=== PATIENT | female | born 1990 | race Caucasian/White ===

== ENCOUNTER 2025-02-17 15:17 | Inpatient (IN) | payer OTHER ==
[2025-02-17 17:01] LABS: MCHC 23.8 g/dl (32.2-35.5); MEAN CELL VOLUME 65.8 fl (79.4-94.8); MEAN PLT VOLUME 9.3 fl (9.4-12.3); RDW 23.5 % (12.1-16.8)
[2025-02-17 17:14] LABS: GLUCOSE,RANDOM 368.0 mg/dL (74-106); TOT PROT 7.5 g/dl (6.4-8.2)
[2025-02-17 17:15] LABS: CO2 28.0 mmol/L (21-32); INR 0.87 (0.83-1.09); PROTHROMBIN TIME (PATIENT) 9.6 SEC (9.7-13.0)
[2025-02-17 17:17] LABS: ACTIVATED PTT 25.6 SECONDS (25.2-36.5); ALK PHOS 170.0 U/L (40-150)
[2025-02-17 17:20] LABS: CREATININE 0.49 mg/dL (0.55-1.3); SGOT/AST 18.0 U/L (5-34); SGPT/ALT 26.0 U/L (0-55)
[2025-02-17 17:53] LABS: BG HCT 19.0 % (32.4-45.2); VENOUS BASE EXCESS 2.0 mmol/L (-2-2); VENOUS O2 SATURATION 76.6 % (70-80); VENOUS PCO2 43.9 mmHg (38-52); VENOUS PH 7.405 (7.310-7.410)
[2025-02-17] MEDS ORDERED: PANTOPRAZOLE SODIUM 40 MG VIAL ONE (18:32)
[2025-02-17] MEDS: SODIUM CHLORIDE 0.9% 500 ML INFUS.BAG IV ONE (18:47)
[2025-02-17] MEDS: PANTOPRAZOLE SODIUM 40 MG VIAL IVPUSH ONE (18:48)
[2025-02-17 19:22] LABS: IRON SERUM 13.0 ug/dL (50-175)
[2025-02-17] MEDS ORDERED: INSULIN GLARGINE (LANTUS) 100 UNITS/ML UNITS SQ ONE (22:43)
[2025-02-17] MEDS: INSULIN GLARGINE (LANTUS) 100 UNITS/ML UNITS SQ SCH (22:53)
[2025-02-18] MEDS: QUEtiapine FUMARATE 100 MG TABLET (FP) PO SCH (01:32)
[2025-02-18] MEDS: GABAPENTIN 400 MG CAPSULE PO SCH (01:32)
[2025-02-18] MEDS: PANTOPRAZOLE SODIUM 40 MG VIAL IVPUSH SCH ×2 (01:32→22:07)
[2025-02-18] MEDS: POLYETHYLENE GLYCOL (HEALTHYLAX) 3350 17 GM PACKET PO SCH (01:33)
[2025-02-18] MEDS: THIAMINE 100 MG TABLET PO ONE (04:49)
[2025-02-18] MEDS: MINERAL OIL ENEMA 133 ML ENEMA RC ONE (05:32)
[2025-02-18] MEDS: SODIUM CHLORIDE 1,000 ML IV SCH (05:53)
[2025-02-18] MEDS: INSULIN ASPART SLIDING SCALE (NOVOLOG) 1 VIAL SQ SCH (05:59)
[2025-02-18] MEDS: DEXTROSE 50%-WATER 25 GM/50 ML DISP.SYRIN IVPUSH ONE ×2 (07:01→10:30)
[2025-02-18] MEDS: DEXTROSE 5%-NORMAL SALINE 1,000 ML IV SCH ×2 (09:03→12:59)
[2025-02-18 09:12] LABS: ABSOLUTE IMMATURE GRANULOCYTES 0.03 x10^3/uL (0.0-0.031); BASOPHILS # 0.05 x10^3/uL (0.01-0.08); EOSINOPHIL % 2.3 % (0.7-5.8); EOSINOPHILS # 0.16 x10^3/uL (0.04-0.36); MCHC 27.1 g/dl (32.2-35.5); MEAN CELL VOLUME 70.8 fl (79.4-94.8); MEAN PLT VOLUME 8.8 fl (9.4-12.3); MONOCYTE # 0.78 x10^3/uL (0.24-0.86); MONOCYTE % 11.1 % (4.7-12.5); RDW 28.7 % (12.1-16.8)
[2025-02-18 09:53] LABS: GLUCOSE,RANDOM 43 mg/dL (74-106)
[2025-02-18 09:54] LABS: TOT PROT 7.4 g/dl (6.4-8.2)
[2025-02-18 09:55] LABS: CO2 26 mmol/L (21-32)
[2025-02-18 09:59] LABS: CREATININE 0.51 mg/dL (0.55-1.3); SGOT/AST 21 U/L (5-34); SGPT/ALT 21 U/L (0-55)
[2025-02-18] MEDS ORDERED: DEXTROSE 50%-WATER - 25 GM/50 ML VIAL IVPUSH ONE (10:12)
[2025-02-18] MEDS ORDERED: DEXTROSE 5%-NORMAL SALINE 1,000 ML IV SCH (10:12)
[2025-02-18] MEDS ORDERED: DEXTROSE 50%-WATER 25 GM/50 ML DISP.SYRIN ONE (10:23)
[2025-02-18] MEDS: FOLIC ACID 1 MG TABLET (FP) PO SCH (10:30)
[2025-02-18] MEDS: FLUTICASONE/SALMETEROL (WIXELA) 100 MCG/50 MCG DISKUS IH SCH (10:31)
[2025-02-18 10:33] LABS: ALK PHOS 155 U/L (40-150)
[2025-02-18] MEDS: IRON SUCROSE INJECTION 200 MG in SODIUM CHLORIDE 100 ML IVPB ONE (12:58)
[2025-02-18 15:27] LABS: MCHC 26.8 g/dl (32.2-35.5); MEAN CELL VOLUME 71.7 fl (79.4-94.8); MEAN PLT VOLUME 8.8 fl (9.4-12.3); RDW 28.3 % (12.1-16.8)
[2025-02-18 16:43] LABS: HIV INTERPRETATION NEGATIVE (NEGATIVE)
[2025-02-18] MEDS: PEG 3350/NA SULF BICARB CL/KCL 4000 ML SOLN.RECON PO ONE (17:38)
[2025-02-18] MEDS: BISACODYL 5 MG TABLET.DR (FP) PO ONE (18:15)
[2025-02-18 18:59] LABS: HCV DIAGNOSTIC IN-HOUSE W/RFLX NON-REACTIVE (NONREACTIVE)
[2025-02-18] MEDS: INSULIN GLARGINE (LANTUS) 100 UNITS/ML UNITS SQ SCH (22:30)
[2025-02-19] MEDS: MINERAL OIL ENEMA 133 ML ENEMA RC ONE (07:10)
[2025-02-19] MEDS: THIAMINE 100 MG TABLET PO ONE (07:11)
[2025-02-19 08:48] LABS: MCHC 26.8 g/dl (32.2-35.5); MEAN CELL VOLUME 72.4 fl (79.4-94.8); MEAN PLT VOLUME 9.0 fl (9.4-12.3); RDW 29.4 % (12.1-16.8)
[2025-02-19 09:12] LABS: INR 0.99 (0.83-1.09); PROTHROMBIN TIME (PATIENT) 10.9 SEC (9.7-13.0)
[2025-02-19 09:42] LABS: GLUCOSE,RANDOM 207.0 mg/dL (74-106)
[2025-02-19 09:43] LABS: TOT PROT 7.3 g/dl (6.4-8.2)
[2025-02-19 09:44] LABS: CO2 25.0 mmol/L (21-32)
[2025-02-19 09:45] LABS: ALK PHOS 149.0 U/L (40-150)
[2025-02-19 09:48] LABS: CREATININE 0.51 mg/dL (0.55-1.3); SGOT/AST 29.0 U/L (5-34); SGPT/ALT 21.0 U/L (0-55)
[2025-02-19] MEDS ORDERED: PANTOPRAZOLE 40 MG TABLET PO SCH (10:00)
[2025-02-19 16:20] VITALS: BMI 18.0
[2025-02-19] MEDS ORDERED: PRAMOXINE HCL/CALAMINE 177 ML LOTION TP PRN (18:18)
[2025-02-19] MEDS ORDERED: CALMINE 3% & PRAMOXINE 1% (AVEENO ANTI-ITCH) BOTTLE TP PRN (19:57)
[2025-02-19] MEDS: ONDANSETRON 4 MG/2 ML VIAL IVPUSH ONE (20:55)
[2025-02-19 22:09] VITALS: RESP 19
[2025-02-20] MEDS: INSULIN GLARGINE (LANTUS) 100 UNITS/ML UNITS SQ ONE (02:20)
[2025-02-20] MEDS: SODIUM CHLORIDE 1,000 ML IV SCH (08:00)
[2025-02-20] MEDS: INSULIN (NOVOLOG) ASPART 100 UNITS/ML 10ML VIAL SQ SCH (08:15)
[2025-02-20 08:30] LABS: MCHC 27.0 g/dl (32.2-35.5); MEAN CELL VOLUME 72.0 fl (79.4-94.8); MEAN PLT VOLUME 9.9 fl (9.4-12.3); RDW 30.5 % (12.1-16.8)
[2025-02-20 16:05] VITALS: BP 124/74; PULSE 78; TEMP 98
[2025-02-20] MEDS ORDERED: INSULIN GLARGINE (LANTUS) 100 UNITS/ML UNITS SQ SCH (22:00)
== END 2025-02-20 15:45 | disposition other institution (70) | DRG 378 ==
LOC: JER 15:17 → OBSVTOIN 18:10 → JERBED 18:10 → J5S 23:40
PROVIDERS: ADMIT Internal Medicine; ATTEND Student in an Organized Health Care Education/Training Program
PROC: 30233N1 Transfusion of Nonautologous Red Blood Cells into Peripheral Vein, Percutaneous Approach (ICD-10-PCS; 2025-02-17)
PROC: 0DBB8ZX Excision of Ileum, Via Natural or Artificial Opening Endoscopic, Diagnostic (ICD-10-PCS; 2025-02-19)
PROC: 0DB68ZX Excision of Stomach, Via Natural or Artificial Opening Endoscopic, Diagnostic (ICD-10-PCS; 2025-02-19)
PROC: 0DBH8ZX Excision of Cecum, Via Natural or Artificial Opening Endoscopic, Diagnostic (ICD-10-PCS; principal; 2025-02-19 12:00)
DX: K92.2 Gastrointestinal hemorrhage, unspecified (principal); E46 Unspecified protein-calorie malnutrition; Z68.1 Body mass index [BMI] 19.9 or less, adult; D50.9 Iron deficiency anemia, unspecified; F90.9 Attention-deficit hyperactivity disorder, unspecified type; D47.3 Essential (hemorrhagic) thrombocythemia; E10.65 Type 1 diabetes mellitus with hyperglycemia; F11.10 Opioid abuse, uncomplicated; E10.42 Type 1 diabetes mellitus with diabetic polyneuropathy; F41.8 Other specified anxiety disorders; F43.10 Post-traumatic stress disorder, unspecified; K44.9 Diaphragmatic hernia without obstruction or gangrene; K29.60 Other gastritis without bleeding; K21.9 Gastro-esophageal reflux disease without esophagitis; Z12.11 Encounter for screening for malignant neoplasm of colon
CPT/HCPCS: 36415; 36430; 74177-TC; 80048; 80053; 80076; 82010; 82272; 82747; 82803; 82962; 82977; 83036; 83540; 83550; 83690; 84703; 85014; 85025; 85027; 85610; 85730; 86140; 86803; 86850; 86900; 86901; 86922; 87045; 87046; 87209; 87389; 88305-TC; 88342-TC; 93005; 93010; 99285-25; J1756; P9058; Q9967

== ENCOUNTER 2025-02-20 16:34 | Inpatient (IN) | payer OTHER ==
[2025-02-20 16:58] VITALS: BMI 18.4
[2025-02-20] MEDS ORDERED: guaiFENesin 600 MG TABLET.ER (FP) PO PRN (17:30)
[2025-02-20] MEDS ORDERED: BENZONATATE 200 MG CAPSULE PO PRN (17:30)
[2025-02-20] MEDS ORDERED: BENZOCAINE/MENTHOL (CHLORASEPTIC ) LOZENGE MM PRN (17:30)
[2025-02-20] MEDS ORDERED: NALOXONE HCL 0.4 MG/ML VIAL IVPUSH PRN (17:30)
[2025-02-20] MEDS ORDERED: LOPERAMIDE HCL 2 MG CAPSULE PO PRN (17:30)
[2025-02-20] MEDS ORDERED: NALOXONE (NARCAN) HCL 4 MG/0.1 ML SPRAY NS PRN (17:30)
[2025-02-20] MEDS: INSULIN ASPART SLIDING SCALE (NOVOLOG) 1 VIAL SQ SCH (22:06)
[2025-02-20] MEDS ORDERED: MELATONIN 5 MG TABLETS ONE (22:08)
[2025-02-20] MEDS: MELATONIN 5 MG TABLETS PO SCH (22:09)
[2025-02-20] MEDS: THIAMINE 100 MG TABLET PO SCH (22:10)
[2025-02-20] MEDS: hydrOXYzine PAMOATE 25 MG CAPSULE (FP) PO PRN (22:11)
[2025-02-20] MEDS ORDERED: hydrOXYzine PAMOATE 25 MG CAPSULE (FP) PO ONE (22:11)
[2025-02-20] MEDS ORDERED: INSULIN (NOVOLOG) ASPART 100 UNITS/ML 10ML VIAL SQ ONE (22:22)
[2025-02-20] MEDS: GABAPENTIN 400 MG CAPSULE PO SCH (22:45)
[2025-02-20] MEDS: DOCUSATE SODIUM 100 MG CAPSULE (FP) PO SCH (22:45)
[2025-02-20] MEDS: AMOX TR/POT CLAV 500MG/125MG TABLETS (FP) PO SCH (22:49)
[2025-02-20] MEDS: INSULIN GLARGINE (LANTUS) 100 UNITS/ML UNITS SQ SCH (22:51)
[2025-02-20] MEDS: SUCRALFATE 1 GM TABLET (FP) PO SCH (23:55)
[2025-02-21] MEDS: FERROUS SO4 325 MG TABLET (FP) PO SCH (08:50)
[2025-02-21] MEDS: PRENATAL VITAMINS W/ FOLIC ACID TABLET (FP) PO SCH (09:34)
[2025-02-21] MEDS: FAMOTIDINE 20 MG TABLET PO SCH (09:34)
[2025-02-21] MEDS: FLUTICASONE/SALMETEROL (WIXELA) 100 MCG/50 MCG DISKUS IH SCH (09:34)
[2025-02-21 11:58] LABS: MCHC 27.7 g/dl (32.2-35.5); MEAN CELL VOLUME 72.7 fl (79.4-94.8); MEAN PLT VOLUME 8.8 fl (9.4-12.3)
[2025-02-21] MEDS: METHOCARBAMOL 500 MG TABLET PO PRN (13:16)
[2025-02-21] MEDS: QUEtiapine FUMARATE 100 MG TABLET (FP) PO SCH (21:22)
[2025-02-22] MEDS: INSULIN ASPART SLIDING SCALE (NOVOLOG) 1 VIAL SQ SCH ×2 (12:16→22:09)
[2025-02-22] MEDS: POLYETHYLENE GLYCOL (HEALTHYLAX) 3350 17 GM PACKET PO PRN (19:40)
[2025-02-23] MEDS ORDERED: INSULIN (NOVOLOG) ASPART 100 UNITS/ML 10ML VIAL SQ ONE ×3 (12:16→16:34)
[2025-02-23] MEDS: MAGNESIUM HYDROX 2400MG/30ML ORAL SUSPENSION 30 ML CUP PO PRN (14:11)
[2025-02-24] MEDS ORDERED: INSULIN (NOVOLOG) ASPART 100 UNITS/ML 10ML VIAL SQ ONE ×2 (06:09→11:49)
[2025-02-24] MEDS: IBUPROFEN 400 MG TABLET (FP) PO PRN (11:40)
[2025-02-24] MEDS: INSULIN (NOVOLOG) ASPART 100 UNITS/ML 10ML VIAL SQ SCH (11:45)
[2025-02-24] MEDS: BUPRENORPHINE HCL 150 MCG, BUPRENORPHINE HCL 75 MCG BC ONE (13:01)
[2025-02-24] MEDS: INSULIN GLARGINE (LANTUS) 100 UNITS/ML UNITS SQ SCH (22:01)
[2025-02-25] MEDS ORDERED: INSULIN (NOVOLOG) ASPART 100 UNITS/ML 10ML VIAL SQ ONE ×2 (06:49→11:59)
[2025-02-25] MEDS: BUPRENORPHINE HCL 150 MCG, BUPRENORPHINE HCL 75 MCG BC SCH (06:51)
[2025-02-26] MEDS: BUPRENORPHINE HCL 450 MCG FILM BC SCH (06:14)
[2025-02-27] MEDS: BUPRENORPHINE/NALOXONE 4 MG/1 MG FILM PACKET SL SCH (06:01)
[2025-02-28] MEDS: INSULIN (NOVOLOG) ASPART 100 UNITS/ML 10ML VIAL SQ SCH (06:27)
[2025-02-28] MEDS: BUPRENORPHINE/NALOXONE 4 MG/1 MG FILM PACKET SL SCH (10:28)
[2025-03-01] MEDS ORDERED: INSULIN (NOVOLOG) ASPART 100 UNITS/ML 10ML VIAL SQ ONE (21:29)
[2025-03-01] MEDS ORDERED: INSULIN GLARGINE (LANTUS) 100 UNITS/ML UNITS SQ ONE (21:30)
[2025-03-01] MEDS: INSULIN GLARGINE (LANTUS) 100 UNITS/ML UNITS SQ SCH (22:23)
[2025-03-03] MEDS ORDERED: SILVER SULFADIAZINE 1% TOP CREAM 400 GM JAR TP SCH (16:15)
[2025-03-03] MEDS: SILVER SULFADIAZINE 1% TOP CREAM 50 GM JAR TP SCH (16:30)
[2025-03-03] MEDS: DOXYCYCLINE HYCLATE 100 MG TABLET PO SCH (17:08)
[2025-03-03] MEDS: SENNOSIDES 8.6MG TABLET (FP) PO SCH (21:06)
[2025-03-03] MEDS: LIDOCAINE PATCH REMOVAL MC SCH (21:11)
[2025-03-03] MEDS: INSULIN GLARGINE (LANTUS) 100 UNITS/ML UNITS SQ SCH (21:59)
[2025-03-04] MEDS: FERROUS SO4 325 MG TABLET (FP) PO SCH (07:03)
[2025-03-04] MEDS: SENNOSIDES 8.6MG TABLET (FP) PO SCH (09:46)
[2025-03-04] MEDS ORDERED: INSULIN (NOVOLOG) ASPART 100 UNITS/ML 10ML VIAL SQ ONE (12:12)
[2025-03-04] MEDS: LIDOCAINE 5% TOPICAL PATCH TP PRN (13:58)
[2025-03-04] MEDS: INSULIN GLARGINE (LANTUS) 100 UNITS/ML UNITS SQ SCH (22:02)
[2025-03-05] MEDS ORDERED: INSULIN (NOVOLOG) ASPART 100 UNITS/ML 10ML VIAL SQ ONE (07:21)
[2025-03-05] MEDS: GLYCERIN 1 RECTAL SUPPOSITORY, ADULT RC PRN (10:24)
[2025-03-05] MEDS: INSULIN GLARGINE (LANTUS) 100 UNITS/ML UNITS SQ SCH (22:43)
[2025-03-05] MEDS ORDERED: INSULIN GLARGINE (LANTUS) 100 UNITS/ML UNITS SQ SCH (23:00)
[2025-03-06] MEDS ORDERED: INSULIN (NOVOLOG) ASPART 100 UNITS/ML 10ML VIAL SQ ONE (07:11)
[2025-03-07] MEDS: AMINO ACIDS/PROTEIN HYDROLYS 30 ML LIQUID.PKT PO SCH (07:50)
[2025-03-10] MEDS ORDERED: INSULIN (NOVOLOG) ASPART 100 UNITS/ML 10ML VIAL SQ ONE (07:31)
[2025-03-10] MEDS ORDERED: FLUOCINONIDE 0.05% CREAM (15 GM TUBE) TP PRN (10:59)
[2025-03-10] MEDS ORDERED: MUPIROCIN 2% TOPICAL OINTMENT 22 GM TUBE TP SCH (12:00)
[2025-03-10] MEDS: DOXYCYCLINE HYCLATE 100 MG TABLET PO SCH (12:13)
[2025-03-10] MEDS: INSULIN (NOVOLOG) ASPART 100 UNITS/ML 10ML VIAL SQ SCH (16:37)
[2025-03-10 18:10] LABS: ABSOLUTE IMMATURE GRANULOCYTES 0.01 x10^3/uL (0.0-0.031); BASOPHILS # 0.04 x10^3/uL (0.01-0.08); MEAN PLT VOLUME 9.4 fl (9.4-12.3); MONOCYTE # 0.57 x10^3/uL (0.24-0.86)
[2025-03-10 18:18] LABS: INR 0.85 (0.83-1.09); PROTHROMBIN TIME (PATIENT) 9.3 SEC (9.7-13.0)
[2025-03-10 18:21] LABS: EOSINOPHIL % 2.0 % (0.7-5.8); EOSINOPHILS # 0.09 x10^3/uL (0.04-0.36); MCHC 29.0 g/dl (32.2-35.5); MEAN CELL VOLUME 79.6 fl (79.4-94.8); MONOCYTE % 12.5 % (4.7-12.5)
[2025-03-10 18:22] LABS: GLUCOSE,RANDOM 467 mg/dL (74-106); TOT PROT 7.7 g/dl (6.4-8.2)
[2025-03-10 18:23] LABS: CO2 27 mmol/L (21-32)
[2025-03-10] MEDS: METOCLOPRAMIDE HCL 10 MG TABLET (FP) PO SCH (18:26)
[2025-03-10 18:28] LABS: CREATININE 0.53 mg/dL (0.55-1.3); SGOT/AST 79 U/L (5-34); SGPT/ALT 73 U/L (0-55)
[2025-03-10 18:54] LABS: ALK PHOS 160 U/L (40-150)
[2025-03-11] MEDS ORDERED: INSULIN (NOVOLOG) ASPART 100 UNITS/ML 10ML VIAL SQ ONE ×2 (07:37→11:24)
[2025-03-11] MEDS: MAG HYDROX/AL HYDROX/SIMETH 30 ML UNIT-DOSE CUP PO PRN (12:25)
[2025-03-11 16:31] LABS: GLUCOSE,RANDOM 290.0 mg/dL (74-106)
[2025-03-11 16:32] LABS: TOT PROT 8.7 g/dl (6.4-8.2)
[2025-03-11 16:33] LABS: CO2 25.0 mmol/L (21-32)
[2025-03-11 16:34] LABS: ALK PHOS 158.0 U/L (40-150)
[2025-03-11 16:37] LABS: CREATININE 0.47 mg/dL (0.55-1.3); SGOT/AST 69.0 U/L (5-34); SGPT/ALT 73.0 U/L (0-55)
[2025-03-12] MEDS ORDERED: INSULIN (NOVOLOG) ASPART 100 UNITS/ML 10ML VIAL SQ ONE (11:43)
[2025-03-12] MEDS: METOCLOPRAMIDE HCL 10 MG TABLET (FP) PO SCH (16:50)
[2025-03-13] MEDS ORDERED: INSULIN (NOVOLOG) ASPART 100 UNITS/ML 10ML VIAL SQ ONE (11:52)
[2025-03-13] MEDS: ALBUTEROL SO4 HFA INHALER IH PRN (19:36)
[2025-03-14] MEDS ORDERED: INSULIN (NOVOLOG) ASPART 100 UNITS/ML 10ML VIAL SQ ONE (11:56)
[2025-03-15] MEDS ORDERED: INSULIN (NOVOLOG) ASPART 100 UNITS/ML 10ML VIAL SQ ONE ×2 (11:06→11:20)
[2025-03-16] MEDS ORDERED: INSULIN (NOVOLOG) ASPART 100 UNITS/ML 10ML VIAL SQ ONE ×3 (07:03→22:09)
[2025-03-17] MEDS ORDERED: INSULIN (NOVOLOG) ASPART 100 UNITS/ML 10ML VIAL SQ ONE (06:10)
[2025-03-17] MEDS: ACETAMINOPHEN 325 MG TABLET (FP) PO PRN (16:43)
[2025-03-18] MEDS ORDERED: INSULIN (NOVOLOG) ASPART 100 UNITS/ML 10ML VIAL SQ ONE (11:59)
[2025-03-19] MEDS ORDERED: INSULIN (NOVOLOG) ASPART 100 UNITS/ML 10ML VIAL SQ ONE (07:37)
[2025-03-20 06:42] VITALS: RESP 18
[2025-03-20] MEDS ORDERED: INSULIN (NOVOLOG) ASPART 100 UNITS/ML 10ML VIAL SQ ONE (07:00)
[2025-03-20 09:43] VITALS: BP 128/75; PULSE 96; TEMP 98
== END 2025-03-20 10:32 | disposition home or self-care (01) | DRG 895 ==
LOC: YASAS 16:34 → Y3NR 17:33 → Y5N 02-21 13:11
PROVIDERS: ADMIT Psychiatry & Neurology Pain Medicine; ATTEND Psychiatry & Neurology Pain Medicine
PROC: HZ42ZZZ Group Counseling for Substance Abuse Treatment, Cognitive-Behavioral (ICD-10-PCS; principal; 2025-02-20)
DX: F11.20 Opioid dependence, uncomplicated (principal); F33.1 Major depressive disorder, recurrent, moderate; F43.10 Post-traumatic stress disorder, unspecified; F41.9 Anxiety disorder, unspecified; F81.9 Developmental disorder of scholastic skills, unspecified; D50.9 Iron deficiency anemia, unspecified; E10.9 Type 1 diabetes mellitus without complications; Z79.4 Long term (current) use of insulin; G62.9 Polyneuropathy, unspecified; J45.909 Unspecified asthma, uncomplicated; K31.84 Gastroparesis; M54.50 Low back pain, unspecified; G89.29 Other chronic pain; Z62.810 Personal history of physical and sexual abuse in childhood; Z87.891 Personal history of nicotine dependence
CPT/HCPCS: 36415; 80053; 82150; 82962; 83690; 83735; 85025; 85027; 85610; 87070; 87205